=== PATIENT | female | born 1950 | race Caucasian/White ===

== ENCOUNTER 2024-03-29 07:37 | Inpatient (IN) | payer OTHER ==
[2024-03-29] MEDS ORDERED: Magnesium 2 GM/50 ML BAG (IN WATER) ONE (07:52)
[2024-03-29] MEDS ORDERED: Acetaminophen 500 MG TAB ONE (07:57)
[2024-03-29] MEDS ORDERED: Aspirin Chewable 81 MG TAB ONE (07:57)
[2024-03-29 08:25] LABS: Actual Bicarbonate (HCO3a) 19.3 mEq/L (22-28); Analyzer IN Cardio ER; Base Excess (BEa) -6.8 mEq/L (-2.0 to +3.0); CO2 Tension 40.6 mmHg (35.0-45.0); Calcium, Ionized (arterial) 1.13 mmol/L (1.12-1.30); Carboxyhemoglobin (COHb) 0.6 gm% (0.0-3.0); Hematocrit-ABG 42 % (36.0-47.0); Hemoglobin (Hb) 14.2 g/dL (12.0-16.0); O2 Tension (PaO2), arterial 74.6 mmHg (> 70.0); Potassium - ABG Lab 4.53 mmol/L (3.70-5.30); pH, Arterial 7.294 (7.35-7.45)
[2024-03-29 08:38] LABS: ALT (SGPT) 49 U/L (8-55); AST (SGOT) 65 U/L (5-34); Albumin 3.9 g/dL (3.4-4.8); Alkaline Phosphatase 72 U/L (40-110); Anion Gap 23 mmol/L (10-20); BUN (Urea Nitrogen) 17 mg/dL (9.8-20.1); Bilirubin, Total 0.9 mg/dL (0.2-1.2); Calc. Creatinine Clearance 0 mL/min (70-130); Calcium 9.1 mg/dL (7.8-10.44); Carbon Dioxide 14 mmol/L (23-31); Chloride 105 mmol/L (98-107); Estimated GFR 37; Globulin 4.2 g/dL (2.4-3.5); Glucose 483 mg/dL (83-110); Potassium 4.8 mmol/L (3.5-5.1); Protein, Total 8.1 g/dL (5.8-8.1); Sodium 137 mmol/L (136-145); Troponin I 1.337 ng/mL (< 0.028)
[2024-03-29 08:46] LABS: Puncture Site Right Radial artery
[2024-03-29] MEDS ORDERED: Cefepime 2 GM VIAL ONE (08:57)
[2024-03-29] MEDS ORDERED: Sodium Chloride 0.9% 100 ML ONE (08:58)
[2024-03-29] MEDS ORDERED: Sodium Chloride 0.9% 1,000 ML IV PRN ×4 (09:12)
[2024-03-29] MEDS ORDERED: D5 1/2 NS w/20 mEq KCL 1,000 ML IV PRN (09:12)
[2024-03-29] MEDS ORDERED: NS 0.9% w/ 20 MEQ KCL 1,000 ML IV PRN ×2 (09:12)
[2024-03-29] MEDS ORDERED: Dextrose 50% Abboject 50 ML SYRINGE SLOW IVP PRN ×2 (09:12→15:10)
[2024-03-29] MEDS ORDERED: Dextrose 5 %-0.45 % NaCl 1,000 ML IV PRN (09:12)
[2024-03-29] MEDS ORDERED: INSULIN REGULAR IN 0.9 % NACL 100 ML ONE (09:13)
[2024-03-29] MEDS ORDERED: Insulin Regular, Human 100 UNIT/ML 10 ML VIAL ONE (09:13)
[2024-03-29] MEDS ORDERED: LevoFLOXacin 750 mg/D5W 750 MG in Premix 1 BAG IVPB SCH (09:15)
[2024-03-29] MEDS ORDERED: INSULIN REGULAR IN 0.9 % NACL 100 ML IVPB SCH (09:15)
[2024-03-29 09:18] LABS: INR-International Normal Ratio 1.3; PTT 30.5 sec (22.9-36.1); Prothrombin Time 15.9 sec (12.0-14.7)
[2024-03-29] MEDS ORDERED: Acetaminophen 325 MG TAB PO PRN (09:21)
[2024-03-29] MEDS ORDERED: Guaifenesin DM 100-10/5 ML UDCUP PO PRN (09:21)
[2024-03-29] MEDS ORDERED: Acetaminophen 650 MG Suppository PR PRN (09:21)
[2024-03-29] MEDS ORDERED: Promethazine HCl 25 MG in Sodium Chloride 0.9% 50 ML IVPB PRN (09:26)
[2024-03-29 09:54] LABS: Analyzer IN Cardio ER; Base Excess -5.8 mEq/L (-2.0 to +3.0); Calcium, Ionized (venous) 1.04 mmol/L (1.16-1.32); Chloride (VBG) 104 mmol/L (98-106); Hematocrit-VBG 41 % (36.0-47.0); Hemoglobin (Hb) 13.9 g/dL (11.7-16.1); Potassium (VBG) 4.26 mmol/L (3.70-5.30); Sodium 141 mmol/L (133-146); pH (venous) 7.346 (7.32-7.43)
[2024-03-29] MEDS ORDERED: Iopamidol-370 76% 500 ML MDV (1 ML CHARGE) ONE (10:25)
[2024-03-29 10:42] LABS: Anion Gap 18 mmol/L (10-20); BUN (Urea Nitrogen) 17 mg/dL (9.8-20.1); Calc. Creatinine Clearance 0 mL/min (70-130); Calcium 8.5 mg/dL (7.8-10.44); Carbon Dioxide 17 mmol/L (23-31); Chloride 106 mmol/L (98-107); Estimated GFR 44; Glucose 397 mg/dL (83-110); Magnesium 2.1 mg/dL (1.6-2.6); Phosphorus 3.8 mg/dL (2.3-4.7); Potassium 4.2 mmol/L (3.5-5.1); Sodium 137 mmol/L (136-145)
[2024-03-29 11:28] LABS: Lactic Acid 5.75 mmol/L (0.5-2.2)
[2024-03-29 11:41] LABS: Troponin I 1.481 ng/mL (< 0.028)
[2024-03-29] MEDS ORDERED: Electrolyte Replacement Protocol FS PRN (11:45)
[2024-03-29] MEDS: Electrolyte Replacement Protocol 1 EACH IVPB ONE (12:59)
[2024-03-29] MEDS: NS 0.9% w/ 20 MEQ KCL 1,000 ML IV SCH (12:59)
[2024-03-29] MEDS: Doxycycline 100 MG in Sodium Chloride 0.9% 100 ML IVPB SCH (12:59)
[2024-03-29] MEDS: Famotidine/PF 20 mg/2ml Vial SLOW IVP SCH ×2 (12:59→21:46)
[2024-03-29] MEDS: Aspirin 81 mg Enteric Coated Tablet PO SCH (13:39)
[2024-03-29] MEDS: Furosemide 40 MG (4 mL) VIAL SLOW IVP SCH ×2 (13:39→16:40)
[2024-03-29 13:53] LABS: Anion Gap 17 mmol/L (10-20); BUN (Urea Nitrogen) 17 mg/dL (9.8-20.1); Calc. Creatinine Clearance 107 mL/min (70-130); Calcium 8.6 mg/dL (7.8-10.44); Carbon Dioxide 19 mmol/L (23-31); Chloride 107 mmol/L (98-107); Estimated GFR 63; Glucose 242 mg/dL (83-110); Potassium 4.2 mmol/L (3.5-5.1); Sodium 139 mmol/L (136-145)
[2024-03-29] MEDS ORDERED: Glucagon 1 MG/ML KIT IM PRN (15:10)
[2024-03-29] MEDS ORDERED: Dextrose 5% in Water 1,000 ML IV PRN (15:10)
[2024-03-29] MEDS: Insulin Lispro 100 UNIT/ML 10 ML VIAL SC SCH (16:40)
[2024-03-29] MEDS ORDERED: Apixaban 5 MG TAB PO SCH (21:00)
[2024-03-29] MEDS: Enoxaparin 100 MG (1 mL) SYRINGE SC SCH (21:25)
[2024-03-29] MEDS: Enoxaparin 30 MG (0.3 mL) SYRINGE SC SCH (21:25)
[2024-03-29] MEDS: Cefepime 2 GM in Sodium Chloride 0.9% 100 ML IVPB SCH (21:26)
[2024-03-29] MEDS: Insulin Lispro 100 UNIT/ML 10 ML VIAL SC PRN (21:37)
[2024-03-30 04:01] LABS: #Basophils Less than 0.03 10x3/uL (0.0-0.2); #Eosinophils Less than 0.03 10x3/uL (0.0-0.7); %Basophils 0.2 % (0.0-1.0); %Lymphocytes 9.6 % (21.0-51.0); %Monocytes 5.3 % (0.0-10.0); %Neutrophils 84.3 % (42.0-75.0); Hematocrit 35.9 % (36.0-47.0); Hemoglobin 12.2 g/dL (12.0-16.0); Mean Corpuscular Hemoglobin 31.1 pg (27.0-31.0); Mean Corpuscular Volume 91.6 fL (78.0-98.0); Platelet Count 138 10x3/uL (130-400); RBC Distribution Width 14.5 % (11.5-14.5); Red Blood Cell (RBC) Count 3.92 mill/uL (4.20-5.40)
[2024-03-30 04:17] LABS: ALT (SGPT) 34 U/L (8-55); AST (SGOT) 41 U/L (5-34); Albumin 3.4 g/dL (3.4-4.8); Alkaline Phosphatase 60 U/L (40-110); Anion Gap 18 mmol/L (10-20); BUN (Urea Nitrogen) 18 mg/dL (9.8-20.1); Bilirubin, Total 0.9 mg/dL (0.2-1.2); Calc. Creatinine Clearance 127 mL/min (70-130); Calcium 8.5 mg/dL (7.8-10.44); Carbon Dioxide 20 mmol/L (23-31); Chloride 104 mmol/L (98-107); Estimated GFR 78; Globulin 3.7 g/dL (2.4-3.5); Glucose 229 mg/dL (83-110); Protein, Total 7.1 g/dL (5.8-8.1); Sodium 138 mmol/L (136-145)
[2024-03-30] MEDS: Digoxin 0.5 MG/2 ML AMP SLOW IVP SCH (05:27)
[2024-03-30] MEDS: Digoxin 0.5 MG/2 ML AMP ONE (05:51)
[2024-03-30] MEDS: Aspirin 81 mg Enteric Coated Tablet PO SCH (09:43)
[2024-03-30] MEDS: Amiodarone 200 MG TAB PO SCH ×2 (11:19→15:13)
[2024-03-30] MEDS: Sacubitril 24MG/Valsartan 26 MG TAB PO SCH ×2 (11:19→21:17)
[2024-03-30] MEDS: Insulin Glargine 30 UNITS/0.3 ML VIAL SC SCH (21:19)
[2024-03-31 04:10] LABS: #Basophils Less than 0.03 10x3/uL (0.0-0.2); #Eosinophils Less than 0.03 10x3/uL (0.0-0.7); %Lymphocytes 12.6 % (21.0-51.0); %Monocytes 6.5 % (0.0-10.0); %Neutrophils 80.3 % (42.0-75.0); Hematocrit 35.9 % (36.0-47.0); Hemoglobin 11.9 g/dL (12.0-16.0); Mean Corpuscular HGB CONC 33.1 g/dL (32.0-36.0); Mean Corpuscular Hemoglobin 30.7 pg (27.0-31.0); Mean Corpuscular Volume 92.5 fL (78.0-98.0); Mean Platelet Volume 10.1 fL (7.4-10.4); Platelet Count 166 10x3/uL (130-400); RBC Distribution Width 14.4 % (11.5-14.5); Red Blood Cell (RBC) Count 3.88 mill/uL (4.20-5.40)
[2024-03-31 04:17] LABS: Hemoglobin A1c 6.4 % (4.0-6.0)
[2024-03-31 04:22] LABS: Anion Gap 14 mmol/L (10-20); BUN (Urea Nitrogen) 20 mg/dL (9.8-20.1); Calc. Creatinine Clearance 129 mL/min (70-130); Calcium 8.7 mg/dL (7.8-10.44); Carbon Dioxide 25 mmol/L (23-31); Chloride 101 mmol/L (98-107); Estimated GFR 83; Glucose 285 mg/dL (83-110); Magnesium 1.8 mg/dL (1.6-2.6); Potassium 3.4 mmol/L (3.5-5.1); Sodium 137 mmol/L (136-145)
[2024-03-31 04:58] VITALS: BMI 43.1
[2024-03-31] MEDS: Sacubitril 24MG/Valsartan 26 MG TAB PO SCH (10:46)
[2024-03-31] MEDS: Potassium Chloride 20 MEQ TAB PO SCH (10:46)
[2024-03-31] MEDS: Magnesium 2 GM/50 ML(in water) 2 GM in Premix 1 BAG IVPB SCH (10:47)
[2024-04-01 04:42] LABS: #Basophils Less than 0.03 10x3/uL (0.0-0.2); %Basophils 0.1 % (0.0-1.0); %Eosinophils 0.7 % (0.0-10.0); %Lymphocytes 20.4 % (21.0-51.0); %Monocytes 7.6 % (0.0-10.0); %Neutrophils 71.1 % (42.0-75.0); Hematocrit 36.7 % (36.0-47.0); Hemoglobin 12.1 g/dL (12.0-16.0); Mean Corpuscular Hemoglobin 30.2 pg (27.0-31.0); Mean Corpuscular Volume 91.5 fL (78.0-98.0); Mean Platelet Volume 10.6 fL (7.4-10.4); Platelet Count 180 10x3/uL (130-400); RBC Distribution Width 14.6 % (11.5-14.5); Red Blood Cell (RBC) Count 4.01 mill/uL (4.20-5.40)
[2024-04-01 05:38] LABS: Anion Gap 16 mmol/L (10-20); BUN (Urea Nitrogen) 23 mg/dL (9.8-20.1); Calc. Creatinine Clearance 137 mL/min (70-130); Calcium 8.7 mg/dL (7.8-10.44); Carbon Dioxide 26 mmol/L (23-31); Chloride 103 mmol/L (98-107); Estimated GFR 88; Glucose 239 mg/dL (83-110); Magnesium 2.1 mg/dL (1.6-2.6); Potassium 3.5 mmol/L (3.5-5.1); Sodium 141 mmol/L (136-145)
[2024-04-01] MEDS: Lidocaine 4% Patch TD SCH (12:44)
[2024-04-01] MEDS: Spironolactone 25 MG TAB PO SCH ×2 (12:45→16:43)
[2024-04-01] MEDS: Insulin Glargine 30 UNITS/0.3 ML VIAL SC SCH (12:45)
[2024-04-01] MEDS: Potassium Chloride 20 MEQ TAB PO SCH (12:56)
[2024-04-01 17:51] LABS: Potassium 3.8 mmol/L (3.5-5.1)
[2024-04-01] MEDS: Enoxaparin 120 MG/0.8 ML SYRINGE SC SCH (21:36)
[2024-04-01] MEDS: Amiodarone 200 MG TAB PO SCH (21:36)
[2024-04-02] MEDS: Transdermal Patch Removal TOP SCH (01:00)
[2024-04-02 04:55] LABS: #Basophils Less than 0.03 10x3/uL (0.0-0.2); %Basophils 0.2 % (0.0-1.0); %Eosinophils 2.2 % (0.0-10.0); %Lymphocytes 26.9 % (21.0-51.0); %Monocytes 8.5 % (0.0-10.0); %Neutrophils 61.6 % (42.0-75.0); Hemoglobin 11.7 g/dL (12.0-16.0); Mean Corpuscular HGB CONC 33.4 g/dL (32.0-36.0); Mean Corpuscular Hemoglobin 30.8 pg (27.0-31.0); Mean Corpuscular Volume 92.1 fL (78.0-98.0); Mean Platelet Volume 10.1 fL (7.4-10.4); Platelet Count 166 10x3/uL (130-400); RBC Distribution Width 14.5 % (11.5-14.5)
[2024-04-02 05:10] LABS: Anion Gap 13 mmol/L (10-20); BUN (Urea Nitrogen) 23 mg/dL (9.8-20.1); Calc. Creatinine Clearance 127 mL/min (70-130); Calcium 8.4 mg/dL (7.8-10.44); Carbon Dioxide 32 mmol/L (23-31); Chloride 100 mmol/L (98-107); Estimated GFR 87; Glucose 214 mg/dL (83-110); Potassium 3.5 mmol/L (3.5-5.1); Sodium 141 mmol/L (136-145)
[2024-04-02] MEDS: Potassium Chloride 20 MEQ TAB PO SCH ×2 (11:56→16:33)
[2024-04-02] MEDS: acetaZOLAMIDE Sodium 500 mg Vial IVP SCH (12:01)
[2024-04-02] MEDS: Sterile Water 10 ML VIAL IVP SCH (12:01)
[2024-04-02] MEDS: Lidocaine 4% Patch TD SCH (12:01)
[2024-04-02] MEDS: Insulin Glargine 30 UNITS/0.3 ML VIAL SC SCH (21:27)
[2024-04-02] MEDS: Insulin Lispro 100 UNIT/ML 10 ML VIAL SC PRN (21:28)
[2024-04-03 04:16] LABS: #Basophils 0.03 10x3/uL (0.0-0.2); %Basophils 0.5 % (0.0-1.0); %Lymphocytes 29.5 % (21.0-51.0); %Monocytes 8.7 % (0.0-10.0); %Neutrophils 58.6 % (42.0-75.0); Hemoglobin 12.2 g/dL (12.0-16.0); Mean Corpuscular Hemoglobin 30.5 pg (27.0-31.0); Mean Corpuscular Volume 92.5 fL (78.0-98.0); Mean Platelet Volume 10.2 fL (7.4-10.4); Platelet Count 181 10x3/uL (130-400); RBC Distribution Width 14.6 % (11.5-14.5)
[2024-04-03 04:25] LABS: Anion Gap 14 mmol/L (10-20); BUN (Urea Nitrogen) 24 mg/dL (9.8-20.1); Calc. Creatinine Clearance 119 mL/min (70-130); Calcium 9.4 mg/dL (7.8-10.44); Carbon Dioxide 26 mmol/L (23-31); Chloride 103 mmol/L (98-107); Estimated GFR 78; Glucose 207 mg/dL (83-110); Potassium 3.8 mmol/L (3.5-5.1); Sodium 139 mmol/L (136-145)
[2024-04-03] MEDS: Sterile Water 10 ML VIAL IVP SCH (08:50)
[2024-04-03] MEDS: acetaZOLAMIDE Sodium 500 mg Vial IVP SCH (08:50)
[2024-04-03] MEDS: Insulin Glargine 30 UNITS/0.3 ML VIAL SC SCH ×2 (08:51→21:33)
[2024-04-03] MEDS: Magnesium 2 GM/50 ML(in water) 2 GM in Premix 1 BAG IVPB SCH (08:54)
[2024-04-03] MEDS ORDERED: acetaZOLAMIDE Sodium 500 mg Vial IVP SCH (09:00)
[2024-04-03] MEDS: Potassium Chloride 20 MEQ TAB PO SCH (13:07)
[2024-04-03] MEDS: Insulin Lispro 100 UNIT/ML 10 ML VIAL SC PRN (13:09)
[2024-04-04 05:10] LABS: #Basophils Less than 0.03 10x3/uL (0.0-0.2); %Basophils 0.3 % (0.0-1.0); %Eosinophils 1.3 % (0.0-10.0); %Lymphocytes 19.9 % (21.0-51.0); %Monocytes 8.3 % (0.0-10.0); %Neutrophils 69.2 % (42.0-75.0); Hematocrit 38.5 % (36.0-47.0); Hemoglobin 12.9 g/dL (12.0-16.0); Mean Corpuscular HGB CONC 33.5 g/dL (32.0-36.0); Mean Corpuscular Volume 89.5 fL (78.0-98.0); Platelet Count 200 10x3/uL (130-400); RBC Distribution Width 14.7 % (11.5-14.5)
[2024-04-04 05:23] LABS: Anion Gap 19 mmol/L (10-20); BUN (Urea Nitrogen) 30 mg/dL (9.8-20.1); Calc. Creatinine Clearance 117 mL/min (70-130); Calcium 9.5 mg/dL (7.8-10.44); Carbon Dioxide 20 mmol/L (23-31); Chloride 102 mmol/L (98-107); Estimated GFR 75; Glucose 242 mg/dL (83-110); Magnesium 2.1 mg/dL (1.6-2.6); Potassium 4.3 mmol/L (3.5-5.1); Sodium 137 mmol/L (136-145)
[2024-04-04] MEDS ORDERED: CATH FS PRN (10:15)
[2024-04-04] MEDS: Insulin Glargine 30 UNITS/0.3 ML VIAL SC SCH (10:36)
[2024-04-05 04:06] LABS: #Basophils Less than 0.03 10x3/uL (0.0-0.2); %Basophils 0.3 % (0.0-1.0); %Eosinophils 1.3 % (0.0-10.0); %Lymphocytes 27.6 % (21.0-51.0); %Monocytes 9.3 % (0.0-10.0); %Neutrophils 60.5 % (42.0-75.0); Hematocrit 39.4 % (36.0-47.0); Hemoglobin 13.4 g/dL (12.0-16.0); Mean Corpuscular Hemoglobin 30.2 pg (27.0-31.0); Mean Corpuscular Volume 88.9 fL (78.0-98.0); Mean Platelet Volume 10.5 fL (7.4-10.4); Platelet Count 214 10x3/uL (130-400); RBC Distribution Width 14.6 % (11.5-14.5); Red Blood Cell (RBC) Count 4.43 mill/uL (4.20-5.40)
[2024-04-05 04:27] LABS: Anion Gap 18 mmol/L (10-20); BUN (Urea Nitrogen) 31 mg/dL (9.8-20.1); Calc. Creatinine Clearance 95 mL/min (70-130); Calcium 9.2 mg/dL (7.8-10.44); Carbon Dioxide 21 mmol/L (23-31); Chloride 102 mmol/L (98-107); Estimated GFR 65; Glucose 233 mg/dL (83-110); Magnesium 2.1 mg/dL (1.6-2.6); Potassium 3.7 mmol/L (3.5-5.1); Sodium 137 mmol/L (136-145)
[2024-04-05] MEDS: Sodium Chloride 0.9% 1,000 ML IV SCH (05:54)
[2024-04-05] MEDS ORDERED: fentaNYL 50 mcg/mL 1 mL Vial ONE (06:31)
[2024-04-05] MEDS ORDERED: Midazolam HCl 2 mg/2 ml Vial ONE (06:31)
[2024-04-05] MEDS ORDERED: Nitroglycerin 50 MG/250 ML BOT 0 ML ONE (06:32)
[2024-04-05] MEDS ORDERED: Heparin 10,000 UNITS/ 10 ML VIAL ONE (06:32)
[2024-04-05] MEDS ORDERED: Sodium Chloride 0.9% 200 ML IV PRN (08:15)
[2024-04-05] MEDS ORDERED: Nitroglycerin 0.4 MG TAB (25 Tab Bottle) SL PRN (08:15)
[2024-04-05] MEDS ORDERED: Iopamidol 370 76% 100 ML VIAL ONE (10:23)
[2024-04-05 13:08] VITALS: BMI 38.7
[2024-04-05] MEDS: Insulin Lispro 100 UNIT/ML 10 ML VIAL SC PRN ×2 (17:41→21:59)
[2024-04-05] MEDS: Doxycycline 100 MG CAP PO SCH (21:50)
[2024-04-06 06:21] LABS: #Basophils Less than 0.03 10x3/uL (0.0-0.2); %Basophils 0.3 % (0.0-1.0); %Lymphocytes 20.2 % (21.0-51.0); %Neutrophils 68.9 % (42.0-75.0); Hematocrit 38.3 % (36.0-47.0); Hemoglobin 13.1 g/dL (12.0-16.0); Mean Corpuscular HGB CONC 34.2 g/dL (32.0-36.0); Mean Corpuscular Hemoglobin 30.6 pg (27.0-31.0); Mean Corpuscular Volume 89.5 fL (78.0-98.0); Mean Platelet Volume 10.3 fL (7.4-10.4); Platelet Count 190 10x3/uL (130-400); RBC Distribution Width 14.8 % (11.5-14.5); Red Blood Cell (RBC) Count 4.28 mill/uL (4.20-5.40)
[2024-04-06 06:39] LABS: Anion Gap 16 mmol/L (10-20); BUN (Urea Nitrogen) 31 mg/dL (9.8-20.1); Calc. Creatinine Clearance 106 mL/min (70-130); Carbon Dioxide 21 mmol/L (23-31); Estimated GFR 72; Glucose 276 mg/dL (83-110); Potassium 3.7 mmol/L (3.5-5.1); Sodium 134 mmol/L (136-145)
[2024-04-06 06:54] LABS: Chloride 101 mmol/L (98-107)
[2024-04-06] MEDS ORDERED: Apixaban 5 MG TAB PO SCH (08:00)
[2024-04-06] MEDS: Magnesium 2 GM/50 ML(in water) 2 GM in Premix 1 BAG IVPB SCH (09:26)
[2024-04-06] MEDS: Furosemide 20 MG TAB PO SCH (09:27)
[2024-04-06 09:40] VITALS: BP 122/60; TEMP 97.5
[2024-04-08] MEDS ORDERED: Apixaban 5 MG TAB PO SCH (08:00)
== END 2024-04-06 12:01 | disposition home or self-care (01) | DRG 871 ==
LOC: ERS 07:37 → IMCU/EMU 08:33 → 2NO 04-03 18:44
PROVIDERS: ADMIT Internal Medicine; ATTEND Internal Medicine
PROC: 3E03329 Introduction of Other Anti-infective into Peripheral Vein, Percutaneous Approach (ICD-10-PCS; 2024-03-29)
PROC: 4A023N7 Measurement of Cardiac Sampling and Pressure, Left Heart, Percutaneous Approach (ICD-10-PCS; principal; 2024-04-05)
PROC: B211YZZ Fluoroscopy of Multiple Coronary Arteries using Other Contrast (ICD-10-PCS; 2024-04-05)
PROC: B215YZZ Fluoroscopy of Left Heart using Other Contrast (ICD-10-PCS; 2024-04-05)
DX: A41.59 Other Gram-negative sepsis (principal); E11.10 Type 2 diabetes mellitus with ketoacidosis without coma; I21.4 Non-ST elevation (NSTEMI) myocardial infarction; J18.9 Pneumonia, unspecified organism; J96.01 Acute respiratory failure with hypoxia; I50.33 Acute on chronic diastolic (congestive) heart failure; J15.69 Pneumonia due to other Gram-negative bacteria; I21.A1 Myocardial infarction type 2; N39.0 Urinary tract infection, site not specified; Z68.41 Body mass index [BMI] 40.0-44.9, adult; I13.0 Hypertensive heart and chronic kidney disease with heart failure and stage 1 through stage 4 chronic kidney disease, or unspecified chronic kidney disease; E11.65 Type 2 diabetes mellitus with hyperglycemia; I48.0 Paroxysmal atrial fibrillation; E66.01 Morbid (severe) obesity due to excess calories; E87.6 Hypokalemia; B96.1 Klebsiella pneumoniae [K. pneumoniae] as the cause of diseases classified elsewhere; D63.1 Anemia in chronic kidney disease; E83.42 Hypomagnesemia; N18.30 Chronic kidney disease, stage 3 unspecified; E11.22 Type 2 diabetes mellitus with diabetic chronic kidney disease; Z88.2 Allergy status to sulfonamides; Z88.8 Allergy status to other drugs, medicaments and biological substances; Z91.018 Allergy to other foods; Z79.899 Other long term (current) drug therapy; Z79.84 Long term (current) use of oral hypoglycemic drugs; Z79.4 Long term (current) use of insulin
CPT/HCPCS: 36415; 36416; 36600; 71045; 71275; 80048; 80053; 82010; 82805; 83036; 83605; 83735; 83930; 84100; 85025; 85610; 85730; 93005; 93010; 93306; 93458; 94660; 96365; 96366; 96368; 96375; 99152; 99153; C1769; C1887; C1894; J0692; J1120; J1160; J1644; J1650; J1815; J1940; J2250; J3010; J3475; J3480; J3490; J7030; Q9967